=== PATIENT | male | born 1975 | race Hispanic/Latino ===

== ENCOUNTER 2019-02-22 15:51 | Emergency (ER) | payer OTHER ==
[2019-02-22] MEDS ORDERED: LIDOCAINE 1% 10 ML VIAL INJ ONE (16:18)
--- NOTE | 2019-02-22 16:42 | RAD ---
EXAM: XR Left Hand Complete, 3 Views CLINICAL HISTORY: The patient is 43 years old and is Male; open lac, dislocation vs fxr 2nd digit TECHNIQUE: Frontal, lateral and oblique views of the left hand. COMPARISON: No relevant prior studies available. FINDINGS: BONES/JOINTS: No obvious acute fracture or dislocation. SOFT TISSUES: Mild soft tissue swelling of the 2nd digit as well as at the distal aspect of the 5th digit. No obvious radiopaque foreign body. IMPRESSION: No acute fracture or dislocation visualized. Electronically signed by: Smita Schulte MD 02/22/2019 4:41 PM CDT
[2019-02-22 17:00] VITALS: O2SAT 95
--- NOTE | 2019-02-22 17:25 | ED.PDOC ---
History of Present Illness - General Chief Complaint: Laceration Stated Complaint: Dilocation R 1st digit, puncture thru skin Time Seen by Provider: 02/22/19 15:58 Source: patient Exam Limitations: no limitations - History of Present Illness Initial Comments: the patient is a 43-year-old male presenting to the emergency room secondary to sustaining a finger dislocation to the second digit of the right hand at the metacarpal phalangeal joint. This is a open dislocation. He actually got it pulled back into place before he came in. There is a 1.25 inch laceration extending along the palmar aspect of that joint into the webbing between the second and third digit. He reports good sensation distal to the laceration.range of motion and strength appear to be preserved in the finger. He is starting to develop some bruising but good capillary refill is present. No other injuries. Estimated blood loss prior to arrival was probably 18 cc. The wound actually appears fairly clean itself. He sustained it after it was hit with a soccer ball. No other injuries. Timing/Duration: momentarily Severity: severe Improving Factors: nothing Worsening Factors: nothing Associated Symptoms: denies symptoms Allergies/Adverse Reactions: Allergies NO KNOWN ALLERGY Allergy (Verified 02/22/19 16:54) Home Medications: Ambulatory Orders Amoxicillin & Pot Clavulanate [Augmentin Tab] 875 mg PO BID #20 tab 02/22/19 Sitagliptin Phosphate [Januvia] 100 mg PO DAILY 02/22/19 Sulfa/Trimeth 800/160 (Ds) Tab [Bactrim DS Tab] 1 ea PO BID #20 tab 02/22/19 Review of Systems - Review of Systems Constitutional: States: no symptoms reported EENTM: States: no symptoms reported Respiratory: States: no symptoms reported Cardiology: States: no symptoms reported Gastrointestinal/Abdominal: States: no symptoms reported Genitourinary: States: no symptoms reported Musculoskeletal: States: see HPI Skin: States: see HPI Neurological: States: no symptoms reported Endocrine: States: no symptoms reported All other Systems: No Change from Baseline Past Medical History (General) - Patient Medical History Hx Stroke: No Hx of COPD: No Hx Cardiac Disorders: No Hx Hypertension: No Hx Diabetes: Yes Hx Cancer: No Surgical History: appendectomy - Vaccination History Hx Tetanus, Diphtheria Vaccination: Yes Hx Influenza Vaccination: Yes - Social History Hx Tobacco Use: No Hx Alcohol Use: No Hx Substance Use: No Hx Substance Use Treatment: No Hx Depression: No - Female History Patient is a Female of Child Bearing Age (10 -59 yrs old): No Patient : No Family Medical History - Family History Mother Living Status: Hx Family Diabetes: Yes Physical Exam - Physical Exam General Appearance: Alert, Comfortable, No apparent distress Eye Exam: bilateral normal Ears, Nose, Throat: hearing grossly normal Neck: non-tender, full range of motion Respiratory: no respiratory distress, no accessory muscle use Cardiovascular/Chest: normal peripheral pulses, no edema Peripheral Pulses: radial,right: 2+, radial,left: 2+ Rectal Exam: deferred Extremity: normal range of motion, no pedal edema, normal capillary refill, other - see history of present illness 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 He does appear to be neurovascularly intact. Risk and benefits of repair were explained prior and patient did agree to proceed. The edges were cleaned with alcohol swab and Xylocaine without epinephrine 8 cc was used for local anesthetic. We then pressure irrigated with a syringe 2 L of normal saline to clean the wound. tendon functions appear to be intact. No obvious broken bone on exam. The wound was closed with 8 simple sutures of 3-0 Ethilon. estimated blood loss is another 10 cc here. He is to leave the sutures in place 10-14 days. He needs to jeroinmo tape the more distal aspect of the second and third digit to prevent recurrent dislocation and hyperextension which could tear the stitches out. He is going to be placed on Bactrim and Augmentin for 10 days for infection prevention. This is essentially an open joint. He needs to wash the area several times daily with a antibacterial soap and cover it with Neosporin. ER warnings were given for any significant worsening. He was given a tetanus shot here today. He should expect early arthritis in the joint. I would like for his primary care doctor to reevaluate the wound in the middle of this coming week. [email or web address] [email or web address] [phone] - Results/Orders Results/Orders: x-ray shows no evidence of dislocation or current fracture. This is an x-ray of the right hand. Departure - Departure Clinical Impression: Open dislocation, Accidental laceration ICD-10 Supporting Text: open dislocation of the metacarpal phalangeal joint of the second digit of the right hand Disposition: Discharge to Home or Self Care Condition: Fair Departure Forms: ED Discharge - Pt. Copy, Patient Portal Self Enrollment Instructions: DI for Laceration Repair Diet: diabetic diet Activity: no pushing/pulling with affected limb Referrals: Phillip Rowell MD [Primary Care Provider] - 1-5 Days Prescriptions: Amoxicillin & Pot Clavulanate [Augmentin Tab] 875 mg PO BID #20 tab Sulfa/Trimeth 800/160 (Ds) Tab [Bactrim DS Tab] 1 ea PO BID #20 tab Home Medications: Ambulatory Orders Amoxicillin & Pot Clavulanate [Augmentin Tab] 875 mg PO BID #20 tab 02/22/19 Sitagliptin Phosphate [Januvia] 100 mg PO DAILY 02/22/19 Sulfa/Trimeth 800/160 (Ds) Tab [Bactrim DS Tab] 1 ea PO BID #20 tab 02/22/19 Additional Instructions: the patient is a 43-year-old male presenting to emergency room secondary to an open dislocation of the metacarpal phalangeal joint of the second digit of the right hand. He does appear to be neurovascularly intact. Risk and benefits of repair were explained prior and patient did agree to proceed. The edges were cleaned with alcohol swab and Xylocaine without epinephrine 8 cc was used for local anesthetic. We then pressure irrigated with a syringe 2 L of normal saline to clean the wound. tendon functions appear to be intact. No obvious broken bone on exam. The wound was closed with 8 simple sutures of 3-0 Ethilon. estimated blood loss is another 10 cc here. He is to leave the sutures in place 10-14 days. He needs to jeronimo tape the more distal aspect of the second and third digit to prevent recurrent dislocation and hyperextension which could tear the stitches out. He is going to be placed on Bactrim and Augmentin for 10 days for infection prevention. This is essentially an open joint. He needs to wash the area several times daily with a antibacterial soap and cover it with Neosporin. ER warnings were given for any significant worsening. He was given a tetanus shot here today. He should expect early arthritis in the joint. I would like for his primary care doctor to reevaluate the wound in the middle of this coming week.
[2019-02-22] MEDS: AMOXICILLIN & POT CLAVULANATE 875 MG TAB PO ONE (17:40)
[2019-02-22] MEDS: TETANUS,DIPHTHERIA,PERTUSSIS 1 EA SYG IM ONE (17:40)
[2019-02-22] MEDS: SULFA/TRIMETH 800/160 (DS) TAB 1 EA TAB PO ONE (17:40)
[2019-02-22 17:50] VITALS: BP 134/98; TEMP 98.5
== END 2019-02-22 17:50 | disposition home or self-care (01) ==
LOC: ER 15:51
DX: S63.260A Dislocation of metacarpophalangeal joint of right index finger, initial encounter (principal); S61.210A Laceration without foreign body of right index finger without damage to nail, initial encounter; E11.9 Type 2 diabetes mellitus without complications; W21.02XA Struck by soccer ball, initial encounter; Y92.9 Unspecified place or not applicable